=== PATIENT | male | born 2005 | race Caucasian/White ===

== ENCOUNTER 2024-01-02 01:53 | Emergency (ER) | payer OTHER | END 2024-01-02 03:15 | disposition left against medical advice (07) | LOC: MW.ED 01:53 | DX: G44.319 Acute post-traumatic headache, not intractable (principal); S60.512A Abrasion of left hand, initial encounter; S60.511A Abrasion of right hand, initial encounter; V69.40XA Driver of heavy transport vehicle injured in collision with unspecified motor vehicles in traffic accident, initial encounter; Y92.410 Unspecified street and highway as the place of occurrence of the external cause | CPT/HCPCS: 99284 ==